=== PATIENT | female | born 1940 | race Caucasian/White ===

== ENCOUNTER → 2016-07-16 | Outpatient (CLI) | payer MEDICARE | END | disposition home or self-care (01) | LOC: GMAB 10:40 | PROVIDERS: ATTEND Family Medicine | DX: D50.9 Iron deficiency anemia, unspecified (principal); E53.8 Deficiency of other specified B group vitamins; E03.9 Hypothyroidism, unspecified ==

== ENCOUNTER → 2017-09-29 | Outpatient (CLI) | payer MEDICARE | LOC: GMAJ 15:15 | PROVIDERS: ATTEND Family Medicine | DX: E03.9 Hypothyroidism, unspecified (principal); Z79.899 Other long term (current) drug therapy ==

== ENCOUNTER → 2018-04-07 | Outpatient (CLI) | payer MEDICARE | LOC: GMAJ 10:27 | PROVIDERS: ATTEND Family Medicine | DX: E03.9 Hypothyroidism, unspecified (principal); Z79.899 Other long term (current) drug therapy ==

== ENCOUNTER → 2018-04-10 | Outpatient (CLI) | payer MEDICARE ==
--- NOTE | 2018-04-10 13:00 | MRI ---
EXAM DESCRIPTION: Knee,Left: MRI. CLINICAL HISTORY: 77 years Female MENISCUS TEAR COMPARISON: Radiographs of the knee on 04/08/2018. TECHNIQUE: Multiplanar, high-field MRI, multiple sequences, without contrast: Left knee. FINDINGS: Abnormal signal in the posterior horn of the medial meniscus more on the inner aspect abutting the central attachment compared to the collateral image. This communicates with the inferior articular surface. Degenerative signal in the anterior horn. Intermediate signal in the anterior horn of the lateral meniscus. Moderate chondromalacia in the medial compartment but no subchondral edema. Mild chondromalacia in the lateral compartment with no subchondral edema. Medial and lateral compartment effusion. Posterior soft tissue edema with cysts more medial. Also small cyst abutting the lateral gastrocnemius origin on the lateral femur. Anterior cruciate and posterior cruciate ligaments are intact. Intermediate signal in the femoral insertions of the fibular collateral ligament and the popliteus tendon. Normal signal in the popliteus muscle. Medial collateral ligament is negative. Distal iliotibial band is unremarkable. Suprapatellar effusion. Minimal fluid in the distal quadriceps tendon. Patellar tendon is unremarkable. Soft tissue edema anterior to the patella and patellar tendon. Patellar soft tissue restraints are intact. Advanced chondromalacia medial more than lateral compartment with joint space narrowing. Grade 4 osteochondrosis medial trochlea and lateral patella. Slight medial shift of the patella. No loose bodies. IMPRESSION: 1. Inferior horizontal tear of the posterior horn of the medial meniscus larger on the inner aspect than on the collateral aspect. Complete tear and near the posterior root attachment. Degeneration of the anterior horn of the lateral meniscus. Chondromalacia medial lateral compartments and effusion. 2. Mild strain of the popliteus tendon insertion on the femur and moderate sprain of the fibular collateral ligament insertion. Posterior medial Huffman cysts. Strain of the lateral gastrocnemius insertion on the lateral femur. 3. Grade 4 chondrosis medial trochlea and lateral patellar facet subchondral bone. Medial patellar shift with more narrowing of the medial space. Suprapatellar effusion. Strain of the medial quadriceps tendon. Electronically signed by: Cristian Hampton MD 04/10/2018 12:58 PM [facility]
== END ==
LOC: MRI 07:00
PROVIDERS: ATTEND Family Medicine
DX: S83.209A Unspecified tear of unspecified meniscus, current injury, unspecified knee, initial encounter (principal); M71.22 Synovial cyst of popliteal space [Baker], left knee

== ENCOUNTER → 2018-08-05 | Outpatient (CLI) | payer MEDICARE | LOC: GMAJ 14:39 | PROVIDERS: ATTEND Family Medicine | DX: E03.9 Hypothyroidism, unspecified (principal); I10 Essential (primary) hypertension; E78.2 Mixed hyperlipidemia; E11.9 Type 2 diabetes mellitus without complications ==

== ENCOUNTER → 2019-04-09 | Outpatient (CLI) | payer MEDICARE ==
--- NOTE | 2019-04-11 18:39 | MRI ---
Study: MRI of the Right Shoulder. Indication: ROTATOR CUFF TEAR OR RUPTURE OF RIGHT SHOULDER Technique: Multiplanar, multi sequence MRI of the right shoulder was obtained without intravenous contrast. Comparison: None. Findings: Distal clavicular resection and subacromial decompression noted. Os acromiale present. Prior rotator cuff tendon repair with extensive susceptibility artifact at the surgical repair site. Recurrent full-thickness, fullwidth supraspinatus and infraspinatus tendon tearing noted with retraction of the articular fibers medial to the glenoid and retraction of the torn bursal surface fibers to the level of the medial third of the humeral head. Superior migration humeral head. High-grade articular, effectively full-thickness tearing superior two thirds subscapularis tendon insertion. Mild to moderate atrophy and grade 2/3 fatty infiltration rotator cuff musculature. High-grade long head biceps tendinosis and longitudinal fissuring with medial subluxation onto the lesser tuberosity. Circumferential labral truncation/degeneration. Grade 4 chondral loss, cortical remodeling, and subchondral marrow change of the majority of the glenohumeral joint. Tiny inferior osteophyte. Small joint effusion. No acute fracture. Impression: Recurrent full-thickness, fullwidth retracted supraspinatus and infraspinatus tendon tearing. High-grade articular, effectively full-thickness tearing superior two thirds subscapularis tendon insertion. Mild to moderate atrophy and grade 2/3 fatty infiltration rotator cuff musculature. High-grade long head biceps tendinosis and longitudinal fissuring with medial subluxation. Circumferential labral truncation/degeneration. Moderate to severe glenohumeral joint osteoarthritis with small joint effusion. Distal clavicular resection and subacromial decompression noted. Os acromiale. Electronically signed by: Rick Kwan MD 04/11/2019 6:37 PM [facility]
== END ==
LOC: MRI 10:57
PROVIDERS: ATTEND Family Medicine
DX: M75.121 Complete rotator cuff tear or rupture of right shoulder, not specified as traumatic (principal); S43.431A Superior glenoid labrum lesion of right shoulder, initial encounter; M62.511 Muscle wasting and atrophy, not elsewhere classified, right shoulder; M19.011 Primary osteoarthritis, right shoulder; M25.411 Effusion, right shoulder; M75.21 Bicipital tendinitis, right shoulder; M67.811 Other specified disorders of synovium, right shoulder; M89.8X1 Other specified disorders of bone, shoulder; M54.16 Radiculopathy, lumbar region; Z98.890 Other specified postprocedural states

== ENCOUNTER → 2019-04-12 | Outpatient (CLI) | payer MEDICARE ==
--- NOTE | 2019-04-12 16:12 | MRI ---
EXAM DESCRIPTION: Lumbar Spine w/o Contrast : Magnetic Resonance Imaging. CLINICAL HISTORY: RADICULOPATHY COMPARISON: Lumbar radiographs April 08. TECHNIQUE: Multiplanar, multiple standard sequences, non contrast MRI, lumbar spine. FINDINGS: L5-S1: The disc is well visualized on axial T2 series 501, image 3. L5-S1: Disc desiccation minimal disc space loss on the left and severe on the left with moderate endplate reactive changes and disc spur complex encroaching on the left foramen and impinging the exiting left L4 nerve. Degenerative hypertrophy of the flavum ligaments and facet joints (posterior elements) more left than right. Mild to moderate narrowing of the right foramen. Minimal narrowing of the left subarticular recess. L4-L5: Diffuse advanced disc space loss more severe on the left with disc spur complex encroaching on the left foramen and the exiting left L4 nerve. Moderate narrowing of the right foramen. Posterior disc remnant bulge into the canal with mild to moderate narrowing. Degenerative hypertrophy of the posterior elements more on the left. Narrowing of the left subarticular recess. L3-L4: Disc desiccation and moderate disc space loss more in the midline into the right of midline. Moderate degenerative hypertrophy of the posterior elements compressing the thecal sac against the posterior disc space. AP canal diameter 7.5 mm. 4 mm grade 1 anterolisthesis. Moderate to severe right foraminal narrowing. Mild to moderate left foraminal narrowing. L2-L3: Advanced disc space loss and moderate endplate reactive changes anteriorly into the right of midline. Borderline right foraminal stenosis. Mild left foraminal narrowing. Hypertrophic degenerated posterior elements more to the right of midline in the left with impression on the posterior lateral right thecal sac. Mild canal narrowing. L1-L2: Disc desiccation and disc space loss more to the right of midline. Canal is patent with no bulging disc. Trace retrolisthesis. Moderate to severe foraminal narrowing. Mild to moderate left foraminal narrowing. Circumscribed hyperintense T1 and T2 hemangioma in the L1 vertebral body. Degenerative hypertrophy of the posterior elements more right than left T12-L1: Disc desiccation and moderate disc space loss to the right of midline. Right migration of the T12 vertebral body on the left. 2 mm retrolisthesis. Severe right foraminal narrowing and mild left foraminal narrowing. Degenerative hypertrophy of the posterior elements more right than left. Conus terminates at this level. Marked scoliosis thoracolumbar spine L1-L3 levoscoliosis. Paravertebral soft tissues diffuse paraspinal muscle atrophy increased on the concave side of the curvature.. Distal cord difficult to evaluate due to degree of otherwise normal marrow signal in the remaining vertebral bodies and the posterior elements. Vertebral bodies are not compressed at any level. IMPRESSION: 1. Degenerative scoliosis with L1 and L3 levoscoliosis, multiple levels of disc space narrowing, spondylosis, bulging discs, and hypertrophic degenerated facet joints and posterior ligaments. 2. Hypertrophic endplates on the left and hypertrophic left facet joint and ligamentous at L5-S1 causing left foraminal stenosis and impingement left L5 nerve. 3. Multifactorial left foraminal stenosis at L4-L5 with impingement of the left L4 nerve. 4. Multifactorial moderate canal stenosis at L3-L4 and grade 1 anterolisthesis. Moderate to severe right foraminal narrowing. 5. Right side L2-L3 hypertrophic degenerated posterior elements and spondylosis with borderline right foraminal stenosis. Electronically signed by: Cristian Hampton MD 04/12/2019 4:10 PM [facility]
== END ==
LOC: MRI 12:30
PROVIDERS: ATTEND Family Medicine
DX: M47.816 Spondylosis without myelopathy or radiculopathy, lumbar region (principal); M41.86 Other forms of scoliosis, lumbar region; M48.07 Spinal stenosis, lumbosacral region; M48.062 Spinal stenosis, lumbar region with neurogenic claudication; M51.86 Other intervertebral disc disorders, lumbar region; M46.96 Unspecified inflammatory spondylopathy, lumbar region; M24.28 Disorder of ligament, vertebrae; M75.121 Complete rotator cuff tear or rupture of right shoulder, not specified as traumatic

== ENCOUNTER → 2019-06-14 | Outpatient (CLI) | payer MEDICARE | LOC: GMAJ 16:12 | PROVIDERS: ATTEND Family Medicine | DX: E03.9 Hypothyroidism, unspecified (principal); E11.9 Type 2 diabetes mellitus without complications ==

== ENCOUNTER → 2019-10-13 | Outpatient (CLI) | payer MEDICARE | LOC: GMAJ 10:16 | PROVIDERS: ATTEND Family Medicine | DX: I47.1 Supraventricular tachycardia (principal); I10 Essential (primary) hypertension; E11.9 Type 2 diabetes mellitus without complications; E78.2 Mixed hyperlipidemia ==

== ENCOUNTER → 2020-01-07 | Outpatient (CLI) | payer MEDICARE ==
--- NOTE | 2020-01-08 16:41 | RAD ---
EXAM DESCRIPTION: Hip,Right 2 Views (accession [id number]), Pelvis (accession [id number]): CR/DR/XR CLINICAL HISTORY: 79 years Female HIP PN COMPARISON: MRI lumbar spine April 12. Radiographs lumbar spine April 2018. TECHNIQUE: Two Views. AP neutral AP ABDuction. One view AP pelvis. FINDINGS: Hypertrophic spur superior lateral acetabulum. Minimal hypertrophy on the greater trochanter. Enthesophytes on the iliac crest. Smaller hypertrophic spurs on the superior lateral left acetabulum. Overall bone density is decreased. Pubic symphysis arthrosis. Bilateral SI joint arthrosis. Marked spondylosis L5-S1 and L4-L5 with dextroscoliosis L4-S1. No fractures. IMPRESSION: No acute bony abnormality. Minimal loss of bone density. Bilateral hip joint arthrosis superior lateral associated with the acetabular spurs. Arthrosis SI joints and pubic symphysis. Enthesophytes. Marked spondylosis at L4-5 and L5-S1 with scoliosis. Electronically signed by: Cristian Hampton MD 01/08/2020 4:39 PM [facility]
--- NOTE | 2020-01-08 16:41 | RAD ---
EXAM DESCRIPTION: Hip,Right 2 Views (accession [id number]), Pelvis (accession [id number]): CR/DR/XR CLINICAL HISTORY: 79 years Female HIP PN COMPARISON: MRI lumbar spine April 12. Radiographs lumbar spine April 2018. TECHNIQUE: Two Views. AP neutral AP ABDuction. One view AP pelvis. FINDINGS: Hypertrophic spur superior lateral acetabulum. Minimal hypertrophy on the greater trochanter. Enthesophytes on the iliac crest. Smaller hypertrophic spurs on the superior lateral left acetabulum. Overall bone density is decreased. Pubic symphysis arthrosis. Bilateral SI joint arthrosis. Marked spondylosis L5-S1 and L4-L5 with dextroscoliosis L4-S1. No fractures. IMPRESSION: No acute bony abnormality. Minimal loss of bone density. Bilateral hip joint arthrosis superior lateral associated with the acetabular spurs. Arthrosis SI joints and pubic symphysis. Enthesophytes. Marked spondylosis at L4-5 and L5-S1 with scoliosis. Electronically signed by: Cristian Hampton MD 01/08/2020 4:39 PM [facility]
== END ==
LOC: RAD 09:15
PROVIDERS: ATTEND Orthopaedic Surgery
DX: M85.88 Other specified disorders of bone density and structure, other site (principal); M16.0 Bilateral primary osteoarthritis of hip; M47.896 Other spondylosis, lumbar region; M47.897 Other spondylosis, lumbosacral region; M47.898 Other spondylosis, sacral and sacrococcygeal region; M41.9 Scoliosis, unspecified; M25.751 Osteophyte, right hip; M25.752 Osteophyte, left hip